=== PATIENT | female | born 1955 | race Asian ===

== ENCOUNTER 2019-07-10 22:40 | Emergency (ER) | payer OTHER ==
[~2019-07-10] VITALS: Ht 160 cm; Wt 68.0 kg
[2019-07-10 22:45] VITALS: BP_SYST 155
[2019-07-10] MEDS ORDERED: NACL 0.9% 1,000 ML IV ONE (23:00)
[2019-07-10] MEDS ORDERED: DIPHENHYDRAMINE INJ 50 MG/ML VIAL IVP ONE (23:00)
[2019-07-10] MEDS ORDERED: methylPREDNISolone SOD SUCC/PF 62.5 MG/ML VIAL IVP ONE (23:00)
[2019-07-10] MEDS ORDERED: FAMOTIDINE PF 20 MG/2 ML VIAL IVP ONE (23:00)
[2019-07-11] MEDS ORDERED: HYDROCORTISONE 1% 28.35 GM TOPICAL OINT. TP ONE
[2019-07-11 00:50] VITALS: BP_SYST 128
== END 2019-07-11 00:50 | disposition home or self-care (01) ==
LOC: SED 22:40
DX: T78.40XA Allergy, unspecified, initial encounter (principal); R21 Rash and other nonspecific skin eruption; X58.XXXA Exposure to other specified factors, initial encounter
CPT/HCPCS: 96374; 96375; 99283; J1200; J2930; J3490; J7030